=== PATIENT | male | born 1975 | race Caucasian/White ===

== ENCOUNTER 2017-08-31 13:15 | Emergency (ER) | payer OTHER ==
--- NOTE | 2017-08-31 13:39 | PDOC ---
History of Present Illness - General History Source: Patient, Family, Old Records Exam Limitations: No Limitations - History of Present Illness Initial Comments: 08/31/17 14:41 The patient is a 42 year old male brought via family, with a significant past medical history of chronic depression (On meds but not taking them), who presents to the emergency department complaining of depression for the past 2 days. He notes that he goes to the [facility] and sees a psychiatrist there but refuses to take the medications prescribed. The patient notes that he wants to go to sleep and not wake up but does not illicit a plan of action. The family brought the patient in from concern that he was not answering their phone call. The patient does not endorse any homicidal ideations. The patient denies chest pain, shortness of breath, headache or dizziness. Denies fever, chills, nausea, vomiting, diarrhea and constipation. Allergies: None Past surgical history: None reported Social History: Alcohol use. Exctasy use. <Jaison Sorto - Last Filed: 08/31/17 14:41> <Kinza Merlos - Last Filed: 08/31/17 17:29> - General Stated Complaint: GERNERAL WEAKNESS Time Seen by Provider: 08/31/17 13:39 Past History <Jaison Sorto - Last Filed: 08/31/17 14:41> <Kinza Merlos - Last Filed: 08/31/17 17:29> - Past Medical History Allergies/Adverse Reactions: Allergies Allergy/AdvReac Type Severity Reaction Status Date / Time No Known Allergies Allergy Unverified 08/31/17 13:58 Review of Systems - Review of Systems Able to Perform ROS?: Yes Comments:: 08/31/17 14:41 GENERAL/CONSTITUTIONAL: No fever or chills. No weakness. HEAD, EYES, EARS, NOSE AND THROAT: No change in vision. No ear pain or discharge. No sore throat. CARDIOVASCULAR: No chest pain or shortness of breath RESPIRATORY: No cough, wheezing, or hemoptysis. GASTROINTESTINAL: No nausea, vomiting, diarrhea or constipation. GENITOURINARY: No dysuria, frequency, or change in urination. MUSCULOSKELETAL: No joint or muscle swelling or pain. No neck or back pain. SKIN: No rash NEUROLOGIC: No headache, vertigo, loss of consciousness, or change in strength/ sensation. ENDOCRINE: No increased thirst. No abnormal weight change HEMATOLOGIC/LYMPHATIC: No anemia, easy bleeding, or history of blood clots. ALLERGIC/IMMUNOLOGIC: No hives or skin allergy. <Jaison Sorto - Last Filed: 08/31/17 14:41> *Physical Exam - Vital Signs Last Vital Signs Temp Pulse Resp BP Pulse Ox 98.7 F 58 L 18 114/73 100 08/31/17 13:49 08/31/17 13:49 08/31/17 13:49 08/31/17 13:49 08/31/17 13:49 - Physical Exam Comments: 08/31/17 14:42 GENERAL: (+) Flat affect. Awake, alert, and fully oriented, in no acute distress HEAD: No signs of trauma, normocephalic, atraumatic EYES: PERRLA, EOMI, sclera anicteric, conjunctiva clear ENT: Auricles normal inspection, hearing grossly normal, nares patent, oropharynx clear without exudates. Moist mucosa NECK: Normal ROM, supple, no lymphadenopathy, JVD, or masses LUNGS: No distress, speaks full sentences, clear to auscultation bilaterally HEART: Regular rate and rhythm, normal S1 and S2, no murmurs, rubs or gallops, peripheral pulses normal and equal bilaterally. ABDOMEN: Soft, nontender, normoactive bowel sounds. No guarding, no rebound. No masses EXTREMITIES : Normal inspection, Normal range of motion, no edema. No clubbing or cyanosis. NEUROLOGICAL: Cranial nerves II through XII grossly intact. Normal speech, normal gait, no focal sensorimotor deficits SKIN: Warm, Dry, normal turgor, no rashes or lesions noted <Jaison Sorto - Last Filed: 08/31/17 14:41> ED Treatment Course - LABORATORY CBC & Chemistry Diagram: 08/31/17 14:08 08/31/17 14:08 - ADDITIONAL ORDERS Additional order review: 08/31/17 14:08 RBC 5.15 MCV 88.0 MCHC 34.8 RDW 13.3 MPV 8.0 Neutrophils % 60.4 Lymphocytes % 27.9 Monocytes % 10.0 Eosinophils % 0.9 Basophils % 0.8 <Jaison Sorto - Last Filed: 08/31/17 14:41> - LABORATORY CBC & Chemistry Diagram: 08/31/17 14:08 08/31/17 14:08 <Kinza Merlos - Last Filed: 08/31/17 17:29> Medical Decision Making - Medical Decision Making 08/31/17 14:42 Thais Ramirez (Psychiatry) was called regarding the patient and was consulted on 08/31/2017 at 2:30pm She informed us that she will come in to see the patient. <Jaison Sorto - Last Filed: 08/31/17 14:41> - Medical Decision Making 08/31/17 14:29 Pt presents to the ED complaining of severe depression. Patient also is stating that he wants to go to sleep and "not wake up", although he denies active SI. Patient also lives alone and reports that he is keeping a large quantity of psychiatric medication under his bed. At this time, the patient cannot contract for safety and therefore cannot be safely discharged. Case discussed with Thais Ramirez from psychiatry who will evaluate the patient. Differential also includes severe dehydration, rhabdomyolysis or less likely, infection. Will check labs and reassess after evaluated by psychiatry. Will place on 1:1 observation 08/31/17 14:36 08/31/17 17:20 Patient seen and evaluated by Psychiatric Nurse practioner, who has cleared the patient for discharge. Labs are within normal limits. Will discharge home. <Kinza Merlos - Last Filed: 08/31/17 17:29> *DC/Admit/Observation/Transfer - Attestations Scribe Attestion: 08/31/17 14:42 Documentation prepared by Jaison Sorto, acting as medical insurance clerk for Kinza Merlos MD <Jaison Sorto - Last Filed: 08/31/17 14:41> - Discharge Dispostion Admit: No <Kinza Merlos - Last Filed: 08/31/17 17:29> Diagnosis at time of Disposition: Depression Qualifiers: Depression Type: unspecified Qualified Code(s): F32.9 - Major depressive disorder, single episode, unspecified - Discharge Dispostion Disposition: HOME Condition at time of disposition: Good - Patient Instructions Printed Discharge Instructions: DI for Depression -- Adult Additional Instructions: Return immediately to the ED for thoughts of hurting yourself or others. Seek psychiatric care as soon as possible--call your psychiatrist on Saturday for follow up. REturn to the ED for other new or worsening symptoms.
[2017-08-31 13:58] VITALS: TEMP 98.7; BMI 22.9
[2017-08-31 14:20] LABS: BASO % 0.8 % (0-2.0); EOS % 0.9 % (0-4.5); HEMATOCRIT 45.3 % (35.4-49); HEMOGLOBIN 15.8 GM/dL (11.7-16.9); LYMPH % 27.9 % (8-40); MCH 30.6 pg (25.7-33.7); MCHC 34.8 g/dl (32.0-35.9); NEUT % 60.4 % (42.8-82.8); PLATELET COUNT 263 K/MM3 (134-434); RBC 5.15 M/mm3 (4.00-5.60); RDW 13.3 % (11.9-15.9); WHITE BLOOD COUNT 9.9 K/mm3 (4.0-10.0)
[2017-08-31 14:45] LABS: ALBUMIN 4.3 g/dl (3.4-5.0); ANION GAP 10 (8-16); BILIRUBIN,TOTAL 1.4 mg/dL (0.2-1.0); BLOOD UREA NITROGEN 22 mg/dL (7-18); CALCIUM 9.6 mg/dL (8.5-10.1); CHLORIDE 107 mmol/L (98-107); CO2 21 mmol/L (21-32); CREATININE 1.1 mg/dL (0.7-1.3); GLUCOSE,RANDOM 75 mg/dL (74-106); POTASSIUM 3.9 mmol/L (3.5-5.1); SGOT/AST 16 U/L (15-37); SGPT/ALT 22 U/L (12-78); SODIUM 138 mmol/L (136-145); TOT PROT 7.7 g/dl (6.4-8.2)
[2017-08-31 14:46] LABS: ALK PHOS 70 U/L (45-117)
[2017-08-31 17:39] VITALS: BP 100/64; PULSE 91
--- NOTE | 2017-09-01 14:32 | EKG ---
Test Reason : Blood Pressure : / mmHG Vent. Rate : 063 BPM Atrial Rate : 063 BPM P-R Int : 146 ms QRS Dur : 084 ms QT Int : 476 ms P-R-T Axes : 062 047 039 degrees QTc Int : 487 ms NORMAL SINUS RHYTHM WITH SINUS ARRHYTHMIA PROLONGED QT ABNORMAL ECG NO PREVIOUS ECGS AVAILABLE Confirmed by MD Cleve, Spencer ([id number]) on 09/01/2017 2:31:57 PM Referred By: Confirmed By:Spencer Poon MD
== END 2017-08-31 17:39 | disposition home or self-care (01) ==
LOC: JER 13:15
DX: F32.9 Major depressive disorder, single episode, unspecified (principal)
CPT/HCPCS: 36415; 80053; 84443; 85025; 93005; 93010; 99283-25